=== PATIENT | female | born 1950 | race Caucasian/White ===

== ENCOUNTER 2017-12-19 10:48 | Day surgery (SDC) | payer MEDICARE ==
[2017-12-18 14:44] VITALS: BMI 23.8
[~2017-12-19 10:48] MED LIST: Dexamethasone 20 MG/5 ML VIAL ONE; Glycopyrrolate 0.2 MG/ML 5 ML SYRINGE ONE; Lidocaine 1% PF 5 ML VIAL ONE; Ondansetron HCl/PF 4 MG/2 ML Vial ONE; Propofol 200 MG/20 ML VIAL ONE
[2017-12-19 14:50] LABS: Anion Gap 10 mmol/L (10-20); BUN (Urea Nitrogen) 10 mg/dL (9.8-20.1); Calc. Creatinine Clearance 65 mL/min (70-130); Calcium 9.4 mg/dL (7.8-10.44); Carbon Dioxide 28 mmol/L (23-31); Chloride 103 mmol/L (98-107); Estimated GFR-MDRD 72; Glucose 103 mg/dL (80-115); Potassium 3.9 mmol/L (3.5-5.1); Sodium 137 mmol/L (136-145)
[2017-12-19] MEDS ORDERED: Bacitracin Zinc Ointment 30 gm TUBE ONE (17:40)
[2017-12-19] MEDS ORDERED: Lidocaine 1% w/Epinephrine 1:200K 30 ML VIAL ONE (17:40)
[2017-12-19] MEDS ORDERED: Fentanyl 250 MCG/5 ML VIAL ONE (17:49)
[2017-12-19] MEDS ORDERED: traMADol HCl 50 MG TAB ONE (20:54)
--- NOTE | 2017-12-20 10:10 | OP ---
PREOPERATIVE DIAGNOSIS: Left parotid mass. POSTOPERATIVE DIAGNOSES: Left Warthin's tumor. PROCEDURE PERFORMED: Left superficial parotidectomy with facial nerve dissection. ESTIMATED BLOOD LOSS: Less than 2 mL PROCEDURE IN DETAIL: The patient was identified, brought to the operating room and placed on the ope rating table in supine position. General anesthesia was obtained. The patient was positioned for tran rgery. Facial nerve monitor was placed around the orbicularis alison and the orbicularis oculi and doc umented to be functioning well. The patient was then prepped and draped in sterile fashion. The pre auricular and upper cervical area intended line of incision was infiltrated with 1% lidocaine with 1: 100,000 epinephrine. A preauricular incision was made with 15 blade and carried down into the upper cervical area, 2 fingerbreadths below the angle of the mandible in a natural skin crease, flaps were elevated at the level of the SMAS and the flap was reflected and secured anteriorly. We then dissect ed along the fascial plane between the parotid gland and the sternocleidomastoid and dissected down t o the level of the digastric muscle and the pointer cartilage. It was there that we found the main b ranch of the facial nerve and then we dissected that anteriorly to the pes. We then followed the inf erior and superior branches in an ever meticulous manner and was able to dissect anterior to the mass . We then focused on removing the parotid gland, which included the mass when free margins were obta ined, sent for histologic evaluation and found to be consistent with a benign process likely a Warthi n's tumor. Hemostasis was then obtained with a bipolar cautery and suture ligations. We then turned our attention to closing the wound. The flap was replaced. A cervicofacial flap was replaced and s ecured to the dermis with absorbable 4-0 Monocryl suture. Skin was closed with 6-0 running Prolene s uture, which was reinforced. A small drain was placed, self-contained drain was placed and suture se cured to the skin. The patient was awakened, extubated, and taken to recovery room where she remaine d in stable condition prior to discharge home. Facial nerve was intact at the completion of the case and documented by functioning normally upon stimulation.
--- NOTE | 2017-12-21 08:02 | EKG ---
Test Reason : PREOP Blood Pressure : / mmHG Vent. Rate : 050 BPM Atrial Rate : 050 BPM P-R Int : 148 ms QRS Dur : 092 ms QT Int : 476 ms P-R-T Axes : 042 035 057 degrees QTc Int : 433 ms Sinus bradycardia Otherwise normal ECG No previous ECGs available Confirmed by DR. Faby FERRERA ([id number]) on 12/21/2017 8:02:33 AM Referred By: ANA Confirmed By:DR. Faby FERRERA
== END 2017-12-19 21:00 | disposition home or self-care (01) ==
LOC: SDC 10:48
PROVIDERS: ATTEND Specialist
PROC: 0CT90ZZ Resection of Left Parotid Gland, Open Approach (ICD-10-PCS; principal; 2017-12-19)
PROC: 00BM0ZZ Excision of Facial Nerve, Open Approach (ICD-10-PCS; 2017-12-19)
DX: D11.0 Benign neoplasm of parotid gland (principal); R51 Headache; H93.13 Tinnitus, bilateral; E78.5 Hyperlipidemia, unspecified; M19.90 Unspecified osteoarthritis, unspecified site; F17.210 Nicotine dependence, cigarettes, uncomplicated; F32.9 Major depressive disorder, single episode, unspecified; Z86.73 Personal history of transient ischemic attack (TIA), and cerebral infarction without residual deficits; Z79.899 Other long term (current) drug therapy
CPT/HCPCS: 36415; 80048; 85014; 85018; 88307; 93005; 93010; J1100; J2001; J2405; J2704; J3010